=== PATIENT | female | born 1990 | race Asian ===

== ENCOUNTER 2024-02-21 09:49 | Emergency (ER) | payer BC ==
[2024-02-21 09:54] VITALS: BP 109/70; PULSE 79; RESP 20; TEMP 97.6; BMI 28.3
[2024-02-21] MEDS ORDERED: ACETAMINOPHEN 500 MG TABLET (FP) ONE (10:42)
[2024-02-21] MEDS ORDERED: KETOROLAC TROMETHAMINE 30 MG/1 ML VIAL ONE (10:42)
[2024-02-21] MEDS ORDERED: LIDOCAINE 4% PATCH TP ONE (10:42)
[2024-02-21] MEDS: LIDOCAINE 5% TOPICAL PATCH TP ONE (10:54)
[2024-02-21] MEDS: KETOROLAC TROMETHAMINE 30 MG/1 ML VIAL IM ONE (10:54)
[2024-02-21] MEDS: ACETAMINOPHEN 325 MG TABLET (FP) PO ONE (10:55)
[2024-02-21] MEDS ORDERED: LIDOCAINE PATCH REMOVAL MC ONE (22:00)
== END 2024-02-21 12:33 | disposition home or self-care (01) ==
LOC: JERFT 09:49
PROC: 3E0233Z Introduction of Anti-inflammatory into Muscle, Percutaneous Approach (ICD-10-PCS; principal; 2024-02-21)
DX: M54.50 Low back pain, unspecified (principal)
CPT/HCPCS: 72100-TC-FY; 99284-25